=== PATIENT | female | born 1985 | race African-American/Black ===

== ENCOUNTER 2018-02-24 05:54 | Emergency (ER) | payer BC ==
[~2018-02-24] VITALS: Ht 160 cm; Wt 93.8 kg
[2018-02-24 06:32] LABS: SOURCE SWAB
[2018-02-24 06:37] LABS: APPEARANCE CLOUDY ((CLEAR)); BILIRUBIN NEGATIVE; BLOOD LARGE; COLOR YELLOW ((YELLOW)); GLUCOSE (STRIP) NEGATIVE; KETONES NEGATIVE; LEUKOCYTES LARGE; NITRITE NEGATIVE; PROTEIN (STRIP) 100; SPECIFIC GRAVITY 1.023 (1.000-1.030); UROBILINOGEN 0.2 MG/DL (0.2-1.0)
[2018-02-24 06:51] LABS: EPITHELIAL CELLS 1+ /HPF; RED BLOOD CELLS TNTC /HPF (0-5); WHITE BLOOD CELLS TNTC /HPF (0-5)
[2018-02-24 06:52] LABS: BACTERIA 2+ /HPF; HYALINE CASTS 0-5 /LPF; MUCUS 3+ /LPF
[2018-02-24] MEDS ORDERED: BACTRIM,SEPT1 TABLET PO (07:03)
[2018-02-24] MEDS ORDERED: CLEOCIN VAGINAL40 MG VG (07:03)
[2018-02-24 07:42] VITALS: BP 142/98
== END 2018-02-24 07:44 | disposition home or self-care (01) ==
LOC: EME 05:54
PROVIDERS: Nurse Practitioner Family
DX: N39.0 Urinary tract infection, site not specified (principal); N76.0 Acute vaginitis; Z87.440 Personal history of urinary (tract) infections
CPT/HCPCS: 81003; 87491; 87591; 99281; 99284